=== PATIENT | male | born 1960 | race Caucasian/White ===

== ENCOUNTER 2020-05-25 00:28 | Emergency (ER) | payer BC, OTHER ==
[~2020-05-25] VITALS: Ht 172.7 cm; Wt 104.8 kg
--- OUTSIDE RECORDS SUMMARY | 2020-05-25 00:39 | XMS REPORT ---
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 Active 669252628 Problem Morbid (severe) obesity due to excess calories E66 .01 Active 781814633 Problem Anxiety F41.9 Active 60910245 Problem 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 Active Problem 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 316215941 Problem Hypotestosteronemia E34.9 Jun, Active 4430416232401 Problem Hypertension, unspecified type I10 Active 73601391 ALLERGIES No Information ENCOUNTERS Encounter Location Date Diagnosis [address] [place] [address] Nov, [address] [place] [address] Nov, [address] [place] [address] Oct, Hypotestosteronemia E34.9 [address] [place] [address] Oct, [address] [place] [address] Sep, Hypotestosteronemia E34.9 [address] [place] [address] Sep, [facility] [place] [address] [place] [address] Aug, [facility] [address] [place] [address] Aug, Encounter for immunization Z 23 [facility] [place] [address] [place] [address] Aug, Hypertension, unspecified ty pe I10 ; Anxiety F41.9 ; Spondylosis of cervicothoracic region without myelopathy or radiculopathy M47.813 and 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 [facility] [place] [address] [place] [address] Aug, Anxiety F41.9 [facility] [place] [address] [place] [address] Aug, Hypertension, unspecified ty pe I10 ; 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 and Hypotestosteronemia E34.9 [facility] [place] [address] [place] [address] Aug, [facility] [place] [address] [place] [address] Jul, Anxiety F41.9 [facility] [place] [address] [place] [address] Jul, [facility] [place] [address] [place] [address] Jul, [facility] [place] [address] [place] [address] Jul, Disorder of lipoid metabolis m E78.[address] [place] [address] Jun, Anxiety F41.9 [facility] [place] [address] [place] [address] Jun, [address] [place] [address] Jun, Hypertension, unspecified ty pe I10 [facility] [place] [address] [place] [address] Jun, [address] [place] [address] May, [address] [place] [address] May, [facility] [address] [place] [address] May, Hypotestosteronemia E34.9 [address] [place] [address] May, Anxiety F41.9 [address] [place] [address] May, Hypotestosteronemia E34.9 ; Osteoporosis M81.0 ; Hypertension, unspecified type I10 ; Medication monitoring encounter Z51.81 ; Spondylosis of cervicothoracic region without myelopathy or radiculopathy M 47.813 ; Anxiety F41.9 and 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 [facility] [place] [address] [place] [address] May, Hypotestosteronemia E34.9 [facility] [place] [address] [place] [address] Apr, Hypotestosteronemia E34.[address] [place] [address] Apr, [facility] [place] [address] [place] [address] Apr, [address] [place] [address] Apr, Hypotestosteronemia E34.9 [address] [place] [address] March, [facility] [place] [address] [place] [address] March, Hypotestosteronism E34.9 [facility] [address] [place] [address] March, [facility] [place] [facility] [address] [place] [address] Feb, Hypotestosteronemia E34.9 [facility] [address] [place] [address] Feb, [facility] [place] [address] [place] [address] Feb, [facility] [place] [address] [place] [address] Feb, [facility] [place] [facility] [address] [place] [address] Feb, Hypotestosteronemia E34.9 ; 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 and Hypertension, unspecified type I10 [facility] [place] [address] [place] [address] Feb, Hypertension, unspecified ty pe I10 [facility] [address] [place] [address] Jan, [facility] [place] [facility] [address] [place] [address] Jan, Hypotestosteronemia E34.9 [facility] [place] [facility] [address] [place] [address] Jan, Hypotestosteronism E34.9 [facility] [place] [facility] [address] [place] [address] Jan, Hypertension, unspecified ty pe I10 [facility] [address] [facility] [place] [address] Jan, [facility] [place] [address] [place] [address] Dec, [facility] [address] [facility] [address] [facility] [place] [address] Dec, [facility] [place] [address] [facility] [place] [address] Oct, [facility] [place] [address] [facility] [place] [address] Oct, [facility] [place] [address] [facility] [place] [address] Oct, [facility] [place] [address] [facility] [place] [address] Aug, [facility] [place] [address] [facility] [place] [address] Dec, [facility], [place] [address] [facility] [place] [address] Oct, IMMUNIZATIONS Vaccine Route Administration Date Status TESTOSTERONE 200 MG/1 ML (UP TO 100 MG) IM Intramuscular January 292018 Administered SOCIAL HISTORY Never Assessed REASON FOR VISIT Testosterone injection PLAN OF CARE VITAL SIGNS MEDICATIONS Unknown Medications RESULTS No Results PROCEDURES Procedure Date Ordered Result Body Site THER/PROPH/DIAG INJ, SC/IM February 22, 2019 INJ TESTOSTERONE CYPIONATE 1 MG 100 units February 22, 2019 INSTRUCTIONS MEDICATIONS ADMINISTERED No Known Medications MEDICAL (GENERAL) HISTORY Type Description Date Medical History Hypotestosteronemia Medical History Disorder of lipoid metabolism Medical History Non-pressure chronic ulcer of lower leg Medical History Spondylosis of cervicothorac ic region without myelopathy or radiculopathy Medical History Osteoporosis Medical History Essential hypertension Surgical History Hernia Repair Surgical History veins removed from right leg Surgical History colonoscopy Hospitalization History Surgeries Hospitalization History chicken pox
--- OUTSIDE RECORDS SUMMARY | 2020-05-25 00:39 | XMS REPORT ---
Author Author Allan GIVENS Organization [facility] Address [address] [place] [address] Care Team Providers Care Adapted Physical Education Aide Name Role Phone MARIUSZ GIVENS Unavailable PROBLEMS Type Condition ICD9-CM Code DUA50-CL Code Onset Dates Condition S tatus SNOMED Code Problem Osteoporosis 733.00 0 9028198 6 Problem Umbilical hernia without obstruction and without gangr hoa 553.1 Oct, 0 7182697 Problem Osteoporosis M81.0 0 2373595 6 Problem Umbilical hernia without obstruction and without gangr hoa K42.9 Oct, 0 1061351 Problem Bleeding from varicose vein I83.899 March, 0 Problem Bleeding from varicose vein 454.8 March, 0 Problem Status post umbilical hernia repair, follow-up exam V6 7.09 Nov, 0 Problem Status post umbilical hernia repair, follow-up exam Z09 05 Nov, 2016 0 093067244 Problem Non-pressure chronic ulcer of lower leg 707.10 0 85693991 Problem Hypotestosteronemia E34.9 Jun, 0 3926066248503 Problem 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.813 0 129302851 Problem Hypertension, unspecified type I10 Active 20506238 Problem Spondylosis of cervicothorac ic region without myelopathy or radiculopathy 721.0 0 057430552 Problem 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 0 Problem Hypotestosteronemia 259.9 Jun, 0 2455991744391 Problem Disorder of lipoid metabolism 272.9 0 430821679 Problem 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 0 [id number] ALLERGIES No Information ENCOUNTERS Encounter Location Date Diagnosis [address] [address] Feb, [address] [address] Jan, Hypotestosteronism E34.[address] [address] Jan, Hypertension, unspecified type I10 [facility] [address] [facility] [id number] [address] [place] [address] Jan, [address] [address] Dec, [address] [place] [address] [facility] [place] [address] Dec, [facility] [address] [facility] [id number] [address] [place] [address] Oct, [facility] [address] [facility] [id number] [address] [place] [address] Oct, [facility] [address] [facility] [id number] [address] [place] [address] Oct, [facility] [address] [facility] [id number] [address] [place] [address] Aug, [facility] [address] [facility] [id number] [address] [place] [address] Dec, [facility] [address] [facility] [id number] [address] [place] [address] Oct, IMMUNIZATIONS No Known Immunizations SOCIAL HISTORY Never Assessed REASON FOR VISIT Controlled Med Refill 02/02 PLAN OF CARE VITAL SIGNS MEDICATIONS Medication Instructions Dosage Frequency Start Date End Date Duration S tatus Xanax 0.25 MG Orally Once a day 1 tablet 24h Jan, 28 days Active RESULTS No Results PROCEDURES No Known procedures INSTRUCTIONS MEDICATIONS ADMINISTERED No Known Medications
--- OUTSIDE RECORDS SUMMARY | 2020-05-25 00:39 | XMS REPORT | Continuity of Care Document ---
Author Organization Unknown Address Unknown Phone Unavailable Allergies There is no data. Medications There is no data. Problems There is no data. Procedures There is no data. Results Test Result Range LIPID PANEL - 03/07/19 08:30 CHOLESTEROL, TOTAL 151 mg/dL <200 HDL CHOLESTEROL 50 mg/dL >40 TRIGLYCERIDES 129 mg/dL <150 LDL-CHOLESTEROL 78 mg/dL (calc) NRG CHOL/HDLC RATIO 3.0 (calc) <5.0 NON HDL CHOLESTEROL 101 mg/dL (calc) <13 0 CMP - 03/07/19 08:30 GLUCOSE 87 mg/dL 65-99 UREA NITROGEN (BUN) 14 mg/dL 7-25 CREATININE 0.68 mg/dL 0.70-1.33 eGFR NON-AFR. ANGUILLAN 105 mL/min/1.73m2 > OR = 60 eGFR 121 mL/min/1.73m2 > OR = 60 BUN/CREATININE RATIO 21 (calc) 6-22 SODIUM 138 mmol/L 135-146 POTASSIUM 4.8 mmol/L 3.5-5.3 CHLORIDE 102 mmol/L 98-110 CARBON DIOXIDE 27 mmol/L 20-32 CALCIUM 9.2 mg/dL 8.6-10.3 PROTEIN, TOTAL 6.8 g/dL 6.1-8.1 ALBUMIN 4.5 g/dL 3.6-5.1 GLOBULIN 2.3 g/dL (calc) 1.9-3.7 ALBUMIN/GLOBULIN RATIO 2.0 (calc) 1.0-2. 5 BILIRUBIN, TOTAL 0.7 mg/dL 0.2-1.2 ALKALINE PHOSPHATASE 52 U/L 40-115 AST 23 U/L 10-35 ALT 25 U/L 9-46 CBC w/MANUAL DIFF - 03/07/19 08:30 WHITE BLOOD CELL COUNT 5.7 Thousand/uL 3 .8-10.8 RED BLOOD CELL COUNT 4.91 Million/uL 4.2 0-5.80 HEMOGLOBIN 15.5 g/dL 13.2-17.1 HEMATOCRIT 44.7 % 38.5-50.0 MCV 91.0 fL 80.0-100.0 MCH 31.6 pg 27.0-33.0 MCHC 34.7 g/dL 32.0-36.0 RDW 12.9 % 11.0-15.0 PLATELET COUNT 332 Thousand/uL 140-400 MPV 9.3 fL 7.5-12.5 ABSOLUTE NEUTROPHILS 3802 cells/uL 1500- 7800 ABSOLUTE MONOCYTES 228 cells/uL 200-950 ABSOLUTE EOSINOPHILS 576 cells/uL 15-500 ABSOLUTE BASOPHILS 0 cells/uL 0-200 NEUTROPHILS 66.7 % NRG LYMPHOCYTES 19.2 % NRG MONOCYTES 4.0 % NRG EOSINOPHILS 10.1 % NRG BASOPHILS 0 % NRG ABSOLUTE LYMPHOCYTES 1094 cells/uL 850-3 900 PLATELET ESTIMATION ADEQUATE ADEQUATE COMMENT(S) NRG TESTOSTERONE, TOTAL - 03/15/19 15:50 TESTOSTERONE, TOTAL, MALES (ADULT), IA 126 ng/dL 250-827 PDM - 09 PANEL (PROFILE 1) - 06/16/19 16 :47 Prescribed Drug 1 Tramadol NRG Creatinine 39.0 mg/dL > or = 20.0 pH 6.83 4.5 - 9.0 Oxidant NEGATIVE mcg/mL <200 Amphetamines NEGATIVE ng/mL <500 medMATCH Amphetamines CONSISTENT NRG Benzodiazepines NEGATIVE ng/mL <100 medMATCH Benzodiazepines INCONSISTENT N RG Marijuana Metabolite NEGATIVE ng/mL <20 medMATCH Marijuana Metab CONSISTENT NRG Cocaine Metabolite NEGATIVE ng/mL <150 medMATCH Cocaine Metab CONSISTENT NRG Opiates NEGATIVE ng/mL <100 medMATCH Opiates CONSISTENT NRG Oxycodone NEGATIVE ng/mL <100 medMATCH Oxycodone CONSISTENT NRG COMMENT NRG Prescribed Drug 3 Alprazolam NRG Barbiturates NEGATIVE ng/mL <300 medMATCH Barbiturates CONSISTENT NRG Methadone Metabolite NEGATIVE ng/mL <100 medMATCH Methadone Metab CONSISTENT NRG Phencyclidine NEGATIVE ng/mL <25 medMATCH Phencyclidine CONSISTENT NRG PDM - TRAMADOL - 06/16/19 16:47 Prescribed Drug 1 Tramadol NRG COMMENT NRG Desmethyltramadol 2536 ng/mL <100 medMATCH Desmethyltram CONSISTENT NRG Tramadol 4459 ng/mL <100 medMATCH Tramadol CONSISTENT NRG Prescribed Drug 3 Alprazolam NRG TESTOSTERONE, TOTAL - 09/12/19 08:15 TESTOSTERONE, TOTAL, MALES (ADULT), IA 478 ng/dL 250-827 TESTOSTERONE, FREE AND TOTAL - 12/19/19 07:02 TESTOSTERONE, TOTAL, LC/MS/MS 618 ng/dL 250-1100 TESTOSTERONE, FREE 86.7 pg/mL 46.0-224.0 TESTOSTERONE,BIOAVAILABLE 178.2 ng/dL 11 0.0-575.0 SEX HORMONE BINDING GLOBULIN 33 nmol/L 2 2-77 VITAMIN D, 25-H - 01/18/20 16:37 VITAMIN D,25-OH,TOTAL,IA 19 ng/mL 30-10 0 VITAMIN D, 25-H - 04/02/20 09:05 VITAMIN D,25-OH,TOTAL,IA 33 ng/mL 30-10 0 PDM - TRAMADOL - 04/03/20 16:21 Prescribed Drug 1 Tramadol NRG COMMENT NRG Desmethyltramadol 2552 ng/mL <100 medMATCH Desmethyltram CONSISTENT NRG Tramadol >53800 ng/mL <100 medMATCH Tramadol CONSISTENT NRG Prescribed Drug 3 Alprazolam NRG Encounters ACCT No. Visit Date/Time Discharge Status Pt. Type Provider Facility Loc./Unit Complaint [id number] 04/18/2020 16:00:00 04/18/2020 23:59: 59 [facility] [id number] 04/03/2020 16:00:00 Document Registration [id number] 04/02/2020 07:00:00 Document Registration [id number] 01/18/2020 16:30:00 Document Registration [id number] 12/19/2019 07:00:00 Document Registration [id number] 09/12/2019 08:00:00 Document Registration [id number] 06/16/2019 15:40:00 Document Registration [id number] 03/15/2019 15:30:00 Document Registration [id number] 03/07/2019 08:15:00 Document Registration
--- OUTSIDE RECORDS SUMMARY | 2020-05-25 00:39 | XMS REPORT ---
Author Author Allan GIVENS Organization [facility] Address [address] [place] [address] Care Team Providers Care Human Resources Temp Name Role Phone MARIUSZ GIVENS Unavailable PROBLEMS Type Condition ICD9-CM Code GGW43-BB Code Onset Dates Condition S tatus SNOMED Code Problem Osteoporosis 733.00 0 3209680 6 Problem Umbilical hernia without obstruction and without gangr hoa 553.1 Oct, 0 9147199 Problem Osteoporosis M81.0 0 6675401 6 Problem Umbilical hernia without obstruction and without gangr hoa K42.9 Oct, 0 8129579 Problem Bleeding from varicose vein I83.899 March, 0 Problem Bleeding from varicose vein 454.8 March, 0 Problem Status post umbilical hernia repair, follow-up exam V6 7.09 Nov, 0 Problem Status post umbilical hernia repair, follow-up exam Z09 05 Nov, 2016 0 484229927 Problem Non-pressure chronic ulcer of lower leg 707.10 0 90457256 Problem Hypotestosteronemia E34.9 Jun, 0 4664422698030 Problem 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.813 0 530228939 Problem Hypertension, unspecified type I10 Active 90003513 Problem Spondylosis of cervicothorac ic region without myelopathy or radiculopathy 721.0 0 831070232 Problem 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 0 Problem Hypotestosteronemia 259.9 Jun, 0 9985037524348 Problem Disorder of lipoid metabolism 272.9 0 761566611 Problem 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 0 [id number] ALLERGIES No Information ENCOUNTERS Encounter Location Date Diagnosis [address] [address] Feb, [address] [place] [address] Jan, Hypotestosteronism E34.[address] [address] Jan, Hypertension, unspecified type I10 [facility] [address] [facility] [id number] [address] [place] [address] Jan, [address] [address] Dec, [place] [address] [place] [address] [facility] [place] [address] Dec, [facility] [address] [facility] [id number] [address] [place] [address] Oct, [facility] [address] [facility] [id number] [address] [place] [address] Oct, [facility] [address] [facility] [id number] [address] [place] [address] Oct, [facility] [address] [facility] [id number] [address] [place] [address] Aug, [facility] [address] [facility] [id number] [address] [place] [address] Dec, [facility] [address] [facility] [id number] [address] [place] [address] Oct, IMMUNIZATIONS No Known Immunizations SOCIAL HISTORY Never Assessed REASON FOR VISIT Lab Orders? PLAN OF CARE VITAL SIGNS MEDICATIONS Unknown Medications RESULTS No Results PROCEDURES No Known procedures INSTRUCTIONS MEDICATIONS ADMINISTERED No Known Medications
[2020-05-25 00:44] VITALS: BP 140/67
--- NOTE | 2020-05-25 01:21 | ED Lower Extremity ---
General Chief Complaint: Lower Extremity Stated Complaint: VEIN BROKE IN (R) LEG Nursing Triage Note: PT AMBULATE TO ROOM FS06 WITH C/O VARICOS VEIN THAT IS BLEEDING. PT STATES HIS WAS LOOKING FOR BLACKHEADS AND DECIDED TO PICK AT THE VEIN AND IT STARTED BLEEDING. Nursing Sepsis Screen: No Definite Risk Source: patient Exam Limitations: no limitations History of Present Illness Date Seen by Provider: May 25, 2020 Time Seen by Provider: 00:30 Initial Comments Patient is a 59-year-old male with history of varicose veins who presents with bleeding from varicose vein site. Patient had his legs massaged earlier this evening, which resulted from scar tissue overlying varicose pain. Denies dizziness. Right leg was wrapped with a compression dressings prior to ED arrival in bleeding resolved on ED arrival. Patient is not on anticoagulation or antiplatelet therapy. No other acute symptoms or complaints Onset: just prior to arrival Pain/Injury Location: right leg Method of Injury: other Modifying Factors: Improves With Other Allergies and Home Medications Patient Home Medication List Home Medication List Reviewed: Yes Review of Systems Constitutional: no symptoms reported EENTM: no symptoms reported Respiratory: no symptoms reported Cardiovascular: no symptoms reported Gastrointestinal: no symptoms reported Genitourinary: no symptoms reported Musculoskeletal: see HPI Skin: see HPI Past Fmpijnh-Tfsuen-Xkfygl Hx Patient Social History Alcohol Use: Denies Use Recreational Drug Use: No Smoking Status: Never a Smoker 2nd Hand Smoke Exposure: No Recent Foreign Travel: No Contact w/Someone Who Travel: No Recent Infectious Disease Expo: No Recent Hopitalizations: No Physical Abuse: No Sexual Abuse: No Mistreated: No Fear: No Seasonal Allergies Seasonal Allergies: No Past Medical History Surgeries: Yes (HERNIA, VARICOSE VEIN STRIPPING) Respiratory: No Cardiac: Yes Heart Attack, High Cholesterol Neurological: No Genitourinary: No Gastrointestinal: No Musculoskeletal: Yes Osteoporosis Endocrine: No Cancer: No Psychosocial: No Integumentary: No Blood Disorders: No Physical Exam Vital Signs Vital Signs - First Documented 05/25/20 00:44 Temp 37.3 Pulse 89 Resp 17 B/P (MAP) 140/67 (91) O2 Delivery Room Air Capillary Refill : Less Than 3 Seconds Height, Weight, BMI Height: '" Weight: lbs. oz. kg; 35.00 BMI Method: General Appearance: WD/WN, no apparent distress HEENT: PERRL/EOMI Neck: full range of motion Legs: right leg other (ulcerated right leg varicose vein without active blee ding) Progress/Results/Core Measures Results/Orders Vital Signs/I&O 05/25/20 00:44 Temp 37.3 Pulse 89 Resp 17 B/P (MAP) 140/67 (91) O2 Delivery Room Air Blood Pressure Mean: 91 Departure Communication (Admissions) Compression wrap removed. Bleeding stopped. Patient cleaned and compression dressing reapplied. Recommend supportive care with watchful waiting and vascular surgery follow-up. Return cautions reviewed. Impression Primary Impression: Ulcer of varicose vein of right leg Disposition: HOME, SELF-CARE Condition: Stable Departure-Patient Inst. Add. Discharge Instructions: Wear compression dressing for the next 3 days and avoid warm water and getting leg wet. Avoid heavy lifting and strenuous physical activity for 5 days. Follow- up with your PCP or vascular surgeon. Return to the ED if new or worsening symptoms All discharge instructions reviewed with patient and/or family. Voiced understanding. MANUEL GIBSON DO May 25, 2020 01:21
== END 2020-05-25 01:23 | disposition home or self-care (01) ==
LOC: ER FS 00:35
DX: I83.019 Varicose veins of right lower extremity with ulcer of unspecified site (principal); I25.2 Old myocardial infarction
CPT/HCPCS: 99283